=== PATIENT | female | born 1980 | race Caucasian/White ===

== ENCOUNTER 2018-02-14 14:02 | Emergency (ER) | payer BC ==
[2018-02-14 14:17] VITALS: BP 113/82
[2018-02-14] MEDS ORDERED: Diphtheria,Pertussis(Acell),Tetanus Vaccine 0.5 ML Syringe IM ONE (14:18)
--- NOTE | 2018-02-14 14:18 | EDM.PDOC ---
ED HPI GENERAL MEDICAL PROBLEM - General Chief Complaint: General Stated Complaint: STEPPED ON RUSTIC SCREW(LT FOOT) Time Seen by Provider: 02/14/18 14:14 - History of Present Illness INITIAL COMMENTS - FREE TEXT/NARRATIVE: HISTORY AND PHYSICAL: History of present illness: Patient's a 37-year-old female presents with a concern of having stepped on a screw sustaining a puncture to the plantar surface of left foot this involved her heel she is not up-to-date on her tetanus denies any other trauma or concern Review of systems: As per history of present illness and below otherwise all systems reviewed and negative. Past medical history: As per history of present illness and as reviewed below otherwise noncontributory. Surgical history: As per history of present illness and as reviewed below otherwise noncontributory. Social history: No reported history of drug or alcohol abuse. Family history: As per history of present illness and as reviewed below otherwise noncontributory. Physical exam: HEENT: Atraumatic, normocephalic, pupils reactive, negative for conjunctival pallor or scleral icterus, mucous membranes moist, throat clear, neck supple, nontender, trachea midline. Lungs: Clear to auscultation, breath sounds equal bilaterally, chest nontender. Heart: S1S2, regular, negative for clicks, rubs, or JVD. Abdomen: Soft, nondistended, nontender. Negative for masses or hepatosplenomegaly. Negative for costovertebral tenderness. Pelvis: Stable nontender. Genitourinary: Deferred. Rectal: Deferred. Extremities: Barely perceptible puncture left heel no hemostasis no swelling no erythema, negative for cords or calf pain. Neurovascular unremarkable. Neuro: Awake, alert, oriented. Cranial nerves II through XII unremarkable. Cerebellum unremarkable. Motor and sensory unremarkable throughout. Exam nonfocal. Diagnostics: None Therapeutics: Tetanus updated Impression: #1 puncture wound left heel Definitive disposition and diagnosis as appropriate pending reevaluation and review of above. - Related Data Allergies Allergy/AdvReac Type Severity Reaction Status Date / Time No Known Allergies Allergy Verified 09/03/16 20:28 Home Meds: Home Meds Citalopram [Celexa] 10 mg PO DAILY 04/08/16 [History] L.acidoph,Paracasei, B.lactis [Probiotic] 1 cap PO DAILY 04/09/16 [History] Hydrocodone/Acetaminophen [Hydrocodon-Acetaminophen 5-325] 1 each PO Q6H PRN # 12 tablet 09/04/16 [Rx] Inulin/Chromium Picolinate [Fiber Gummies] 2 tab CHEW DAILY 10/08/16 [History] Lorcaserin HCl [Belviq] 10 mg PO BID 10/08/16 [History] [place]-3 Fatty Acids [Fish Oil] 500 mg PO DAILY 10/08/16 [History] Past Medical History HEENT History: Reports: None Cardiovascular History: Reports: None Respiratory History: Reports: None Gastrointestinal History: Reports: GERD Genitourinary History: Reports: None 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: Musculoskeletal History: Reports: Fracture Other Musculoskeletal History: right hand Neurological History: Reports: None Psychiatric History: Reports: Anxiety, Depression Endocrine/Metabolic History: Reports: Obesity/BMI 30+ Hematologic History: Reports: None Immunologic History: Reports: None Oncologic (Cancer) History: Reports: None Dermatologic History: Reports: None - Infectious Disease History Infectious Disease History: Reports: None - Past Surgical History Female Surgical History: Reports: Breast Implant, Hysterectomy Social & Family History - Family History Family Medical History: Noncontributory HEENT: Reports: Glaucoma, Otitis Media Cardiac: Reports: High Cholesterol : Reports: UTI, Recurrent OBGYN: Reports: Musculoskeletal: Reports: None Neurological: Reports: Alzheimers Disease, Parkinson's, TIA Psychiatric: Reports: Anxiety, Depression Endocrine/Metabolic: Reports: Diabetes, type II, Hypothyroidism Hematologic: Reports: None Dermatologic: Reports: None Oncologic: Reports: Breast, Skin - Tobacco Use Smoking Status *Q: Former Smoker Years of Tobacco use: 3 Packs/Tins Daily: 1 Used Tobacco, but Quit: Yes Second Hand Smoke Exposure: Yes - Caffeine Use Caffeine Use: Reports: Coffee, Soda - Alcohol Use Days Per Week of Alcohol Use: 0 - Recreational Drug Use Recreational Drug Use: No Drug Use in Last 12 Months: No ED ROS GENERAL - Review of Systems Review Of Systems: ROS reveals no pertinent complaints other than HPI. ED EXAM, GENERAL - Physical Exam Exam: See Below (See dictation) Departure - Departure Time of Disposition: 14:17 Disposition: Home, Self-Care 01 Condition: Good Clinical Impression: Puncture wound - Discharge Information Referrals: PCP,None [Primary Care Provider] - Additional Instructions: The following information is given to patients seen in the emergency department who are being discharged to home. This information is to outline your options for follow-up care. We provide all patients seen in our emergency department with a follow-up referral. The need for follow-up, as well as the timing and circumstances, are variable depending upon the specifics of your emergency department visit. If you don't have a primary care physician on staff, we will provide you with a referral. We always advise you to contact your personal physician following an emergency department visit to inform them of the circumstance of the visit and for follow-up with them and/or the need for any referrals to a consulting specialist. The emergency department will also refer you to a specialist when appropriate. This referral assures that you have the opportunity for followup care with a specialist. All of these measure are taken in an effort to provide you with optimal care, which includes your followup. Under all circumstances we always encourage you to contact your private physician who remains a resource for coordinating your care. When calling for followup care, please make the office aware that this follow-up is from your recent emergency room visit. If for any reason you are refused follow-up, please contact the [facility] emergency department at and asked to speak to the emergency department charge nurse. Kelvin Holder [facility] - Podiatry [address] [place] [id number] Fax: [phone] Cipro as prescribed follow-up podiatry/private medical doctor as discussed return as needed as discussed[]
== END 2018-02-14 14:40 | disposition home or self-care (01) ==
LOC: MW.ED 14:02
DX: S91.332A Puncture wound without foreign body, left foot, initial encounter (principal); F41.9 Anxiety disorder, unspecified; F32.9 Major depressive disorder, single episode, unspecified; Z23 Encounter for immunization; Z79.899 Other long term (current) drug therapy; Z87.891 Personal history of nicotine dependence; W26.9XXA Contact with unspecified sharp object(s), initial encounter
CPT/HCPCS: 90471; 90715; 99283-25

== ENCOUNTER 2022-12-12 07:23 | Emergency (ER) | payer BC ==
[2022-12-12] MEDS ORDERED: Ketorolac 30 MG/ML SDV IVPUSH ONE (07:48)
[2022-12-12] MEDS ORDERED: Sodium Chloride 0.9% 1,000 ML IV ONE (07:48)
[2022-12-12 08:31] LABS: CARBON DIOXIDE,CO2 22.2 mmol/L (21.0-32.0)
[2022-12-12] MEDS ORDERED: Iopamidol 755 MG/ML 500 ML Multipack Bottle IVPUSH STA (09:10)
[2022-12-12 12:50] VITALS: BP 125/75; PULSE 76
== END 2022-12-12 12:49 | disposition home or self-care (01) ==
LOC: MW.ED 07:23
DX: R10.84 Generalized abdominal pain (principal); R10.31 Right lower quadrant pain; R10.32 Left lower quadrant pain; E66.9 Obesity, unspecified; Z68.39 Body mass index [BMI] 39.0-39.9, adult; Z90.49 Acquired absence of other specified parts of digestive tract; Z90.710 Acquired absence of both cervix and uterus
CPT/HCPCS: 36415; 74177; 76857; 80053; 81003; 83690; 83735; 84703; 85025; 96361; 96374; 99284; J1885; J7030; Q9967

== ENCOUNTER 2023-10-17 07:00 | Emergency (ER) | payer BC ==
[2023-10-17 08:04] VITALS: BP 134/82; PULSE 82
== END 2023-10-17 08:03 | disposition home or self-care (01) ==
LOC: MW.ED 07:00
DX: J34.89 Other specified disorders of nose and nasal sinuses (principal); E66.9 Obesity, unspecified; Z68.34 Body mass index [BMI] 34.0-34.9, adult; Z90.710 Acquired absence of both cervix and uterus; Z79.899 Other long term (current) drug therapy; Y08.89XA Assault by other specified means, initial encounter
CPT/HCPCS: 70486; 70486-26; 99283; 99284